=== PATIENT | female | born 1950 | race Caucasian/White ===

== ENCOUNTER 2016-06-15 07:05 | Day surgery (SDC) | payer MEDICARE, OTHER ==
[~2016-06-15] VITALS: Ht 152.4 cm; Wt 97.2 kg
[2016-06-15] VITALS (24 sets, daily range): BP systolic 126–199; BP diastolic 65–96; PULSE 57–84; RESP 14–46; Ht 152.4 cm; Wt 97.2 kg
[~2016-06-15 07:05] MED LIST: BENAZEPRIL; METFORMIN; PROZAC; RESPERAL; SIMVASTATIN; TRAM50TA2 PO; VYTORIN
[2016-06-15] MEDS ORDERED: METO25TA4 PO (09:07)
[2016-06-15] MEDS ORDERED: FLUO20CA38 PO (09:07)
[2016-06-15] MEDS ORDERED: BENA20TA48 PO (09:07)
[2016-06-15] MEDS ORDERED: RISP2TAB93 PO (09:07)
[2016-06-15] MEDS ORDERED: ASPI-535 PO (09:07)
[2016-06-15] MEDS ORDERED: ISOS10TA2 PO (09:07)
[2016-06-15] MEDS ORDERED: GABA300C16 PO (09:07)
[2016-06-15] MEDS ORDERED: HEPARIN 1000 UNITS/ML 10 ML INJ ONE (10:30)
[2016-06-15] MEDS ORDERED: VERAPAMIL 5 MG INJ ONE (10:30)
[2016-06-15] MEDS ORDERED: IODIXANOL LOCM 100 ML BTL ONE (10:30)
[2016-06-15] MEDS ORDERED: LIDOCAINE 1% (MDV) 20 ML INJ ONE (10:30)
[2016-06-15] MEDS ORDERED: NITROGLYCERIN (IC) 100 MCG/ML INJ ONE (10:30)
[2016-06-15] MEDS ORDERED: SOD CHLORIDE 0.9% 1,000 ML IV SCH (11:37)
[2016-06-15] MEDS ORDERED: ACETAMINOPHEN 325 MG TAB PO PRN (12:00)
[2016-06-15] MEDS ORDERED: AL HYDROX/MG HYDROX/SIMETH 30 ML CUP PO PRN (12:00)
[2016-06-15] MEDS ORDERED: morphine 2 MG INJ IV PRN (12:00)
[2016-06-15] MEDS ORDERED: ONDANSETRON 4 MG INJ IV PRN (12:00)
--- NOTE | 2016-06-15 16:18 | CARRPT ---
DATE OF PROCEDURE: 06/15/2016 TYPE OF PROCEDURE: 1. Left heart catheterization. 2. Coronary angiography. 3. Left ventriculogram. ATTENDING PHYSICIAN: Adelita Mccoy MD REFERRING PHYSICIAN: Dr. Claudia Lara TYPE OF ANESTHESIA: Conscious and local. INDICATION: Chest pain with positive stress test findings for anterior ischemia, high risk marker f or cardiovascular events. BRIEF HISTORY AND HOSPITAL COURSE: Ms. Aaron is a 65-year-old female with history of hypertensi on, dyslipidemia, diabetes mellitus who initially presented to outside hospital with complaints of s ubsternal chest pain. The patient ruled out for myocardial infarction, underwent 2D echo revealing mildly depressed left ventricular ejection fraction. Continued to complain of chest pain and underw ent a cardiac stress test revealing anterior ischemia with decreased EF. Thus, patient is being refe rred for left heart catheterization to assess for the possibility of significant obstructed coronary arteries with lending to her symptoms of chest pain and positive stress test findings, and admit to the hospital. DESCRIPTION OF PROCEDURE: After informed consent was obtained, the patient was brought to the [facility] cardiac catheterization lab where her right radial area was prepped and drap ed in usual sterile fashion. Lidocaine 2% was infiltrated in the right radial area in order to achi deb adequate local anesthesia. Using modified Seldinger technique, the right radial artery was sally ulated, and a 6-Trinidadian arterial sheath was placed. A 6-Trinidadian JL3.5 catheter was used to cannulate the left main coronary ostium. With contrast injection, multiple views of the left coronary arteria l system, 5-Trinidadian JL3.5 was removed over a guidewire, and a JR4 was used to cannulate the right cor onary arterial ostium. With contrast injection, multiple views of the right coronary arterial syste m. JR4 was removed over a guidewire, and a 6-Trinidadian pigtail was passed down the ascending aorta int o the LV. Left ventricular end-diastolic pressure was measured. A power injector was used to perfo rm left ventriculogram; 20 mL of contrast, and then pulled back across the aortic valve to assess fo r significant gradient, which there was not, and removed. Subsequently, this completed the procedur e. Patient's sheath was removed, and a TR band was applied. This completed the procedure. There w ere no noted complications. FINDINGS: 1. Coronary angiography, left main 5 mm, no significant stenoses. 2. Circumflex proximally is a 4-mm vessel and is free of any significant focal stenosis. Midportio n has a 20% stenosis. It is a distal branching obtuse marginal 3-mm vessel with no significant foca l stenoses and a mid branching obtuse marginal 2 mm with no significant focal stenoses. The LAD pro ximally is a 4-mm vessel, and in its mid portion has a 20% stenosis. The remainder of the LAD is fr ee from focal stenoses. Goes around the apex. There is a mid branching diagonal with 2 mm with a 20 % stenosis. The right coronary artery proximally is a 4- mm vessel, and its mid distal portion has a 20% stenosis at a bend. Dominant vessel gives off a 2.5-mm PDA and a 3-mm posterolateral branch wi th no significant focal stenosis. 3. Left ventriculogram revealed moderately depressed left ventricular ejection fraction approximate ly 44%, with apical hypokinesis. TOTAL FLUOROSCOPY TIME: 6.8 minutes. TOTAL CONTRAST: 85 mL. IMPRESSION: 1. Very mild nonobstructive coronary artery disease. 2. Mildly depressed left ventricular systolic function with wall motion abnormalities as above. 3. Normal left heart filling pressures to 14. 4. No significant aortic stenosis by gradient. 5. 1+ mitral regurgitation. RECOMMENDATIONS: In light of procedure and findings, at this time would: 1. Maximize medical management. 2. Aggressive risk factor reduction. 3. Patient will be readmitted to same-day surgery center for post-cath observation with probable di scharge back to the outside hospital. Dictated By: ADELITA FRNACIS/JESSICA Conf#: [id number] DID#: [id number] CC: CLAUDIA LARA MD;*EndCC*
== END 2016-06-22 15:00 | disposition home or self-care (01) ==
LOC: CCL 07:05 → SDS 07:05 → CCL 06-22 15:00
PROVIDERS: ATTEND Family Medicine
DX: I25.10 Atherosclerotic heart disease of native coronary artery without angina pectoris (principal); I34.0 Nonrheumatic mitral (valve) insufficiency
CPT/HCPCS: 82962; 93458; C1769; C1887; J1644; Q9967